=== PATIENT | female | born 1945 | race Caucasian/White ===

== ENCOUNTER → 2019-10-11 | Outpatient (CLI) | payer MEDICARE, OTHER | END | disposition home or self-care (01) | LOC: RAD 07:40 | PROVIDERS: ATTEND Internal Medicine Gastroenterology | DX: K44.9 Diaphragmatic hernia without obstruction or gangrene (principal); Z98.84 Bariatric surgery status | CPT/HCPCS: 74240 ==

== ENCOUNTER → 2019-12-30 | Outpatient (CLI) | payer MEDICARE ==
[~2019-12-30] MED LIST: CETI10CA PO; Collagen; Creon PO; DULO30CA2 PO; FLUT1DIS IH; Fluticasone; GLUC-149 PO; LEVO50TA PO; Lovastatin PO; MONT10TA11 PO; Multivitamin
== END | disposition home or self-care (01) ==
LOC: STAR 12:29
PROVIDERS: ATTEND Thoracic Surgery (Cardiothoracic Vascular Surgery)
DX: Z01.818 Encounter for other preprocedural examination (principal); K44.9 Diaphragmatic hernia without obstruction or gangrene
CPT/HCPCS: 93005; U0001-CS

== ENCOUNTER 2020-01-04 09:53 | Observation (INO) | payer MEDICARE ==
[~2020-01-04] VITALS: Ht 170.2 cm; Wt 90.1 kg
[~2020-01-04 09:53] MED LIST changes: +BUPIVACAINE/PF-EPI 0.5% 1:200K ONE
[2020-01-04] MEDS ORDERED: LACTATED RINGERS 1,000 ML IV SCH (10:08)
[2020-01-04 10:21] VITALS: BP 118/80
[2020-01-04] MEDS ORDERED: CHLORHEXIDINE 15 ML UDC ONE (10:26)
[2020-01-04] MEDS ORDERED: CHLORHEXIDINE 15 ML UDC MM ONE (10:30)
[2020-01-04] MEDS ORDERED: LIDOCAINE-MPF 1%, 2ML INFIL ONE (10:30)
[2020-01-04] MEDS ORDERED: MIDAZOLAM 1 MG/ML, 2ML ONE (11:42)
[2020-01-04] MEDS ORDERED: FENTANYL PF 250 MCG/5ML ONE ×2 (11:43→13:09)
[2020-01-04] MEDS ORDERED: CEFAZOLIN 1,000 MG ONE (11:57)
[2020-01-04] MEDS ORDERED: DEXAMETHASONE 4 MG/ML, 1ML ONE (11:57)
[2020-01-04] MEDS ORDERED: ONDANSETRON 2MG/ML, 2ML ONE (11:57)
[2020-01-04] MEDS ORDERED: EPHEDRINE 50 MG/ML, 1ML ONE (12:18)
[2020-01-04] MEDS ORDERED: ACETAMINOPHEN 325 MG TABLET PO PRN (12:30)
[2020-01-04] MEDS ORDERED: MIDAZOLAM 1 MG/ML, 2ML IV PRN (12:30)
[2020-01-04] MEDS ORDERED: OXYcodone 5 MG/5 ML ORAL.SOL UDC PO PRN (12:30)
[2020-01-04] MEDS ORDERED: ALBUTEROL SULFATE 2.5 MG/3 ML NPPB PRN (12:30)
[2020-01-04] MEDS ORDERED: MEPERIDINE/PF 25MG/0.5ML IVPush PRN (12:30)
[2020-01-04] MEDS ORDERED: DIPHENHYDRAMINE 50 MG/ML, 1ML IVPush PRN (12:30)
[2020-01-04] MEDS ORDERED: hydrALAzine 20 MG/ML, 1ML IV PRN (12:30)
[2020-01-04] MEDS ORDERED: PROMETHAZINE 25 MG/ML, 1ML IVPush PRN (12:30)
[2020-01-04] MEDS ORDERED: PROMETHAZINE 12.5 MG SUPP PR PRN ×2 (12:30→14:00)
[2020-01-04] MEDS ORDERED: ONDANSETRON 2MG/ML, 2ML IVPush PRN ×2 (12:30→14:00)
[2020-01-04] MEDS ORDERED: DIAZEPAM 5 MG/ML, 2ML IVPush PRN (12:30)
[2020-01-04] MEDS ORDERED: EPHEDRINE 50 MG/ML, 1ML IVPush PRN (12:30)
[2020-01-04] MEDS ORDERED: LABETALOL 5MG/ML, 20ML IV PRN (12:30)
[2020-01-04] MEDS ORDERED: SUGAMMADEX 200 MG/2 ML IVPush ONE (13:36)
[2020-01-04] MEDS ORDERED: ROCURONIUM 10MG/ML,5ML ONE (13:42)
[2020-01-04] MEDS ORDERED: PROPOFOL 10 MG/ML, 20ML ONE (13:42)
[2020-01-04] MEDS ORDERED: SUCCINYLCHOLINE 20 MG/ML, 10ML ONE (13:42)
[2020-01-04] MEDS ORDERED: morphine SULFATE 10 MG/ML, 1ML IVPush PRN (14:00)
[2020-01-04] MEDS ORDERED: ENALAPRILAT 1.25 MG/ML, 2ML IV PRN (14:00)
[2020-01-04] MEDS ORDERED: hydrALAzine 20 MG/ML, 1ML IVPush PRN (14:00)
[2020-01-04] MEDS ORDERED: PHENOL THROAT SPRAY BOTTLE MM PRN (14:00)
[2020-01-04] MEDS ORDERED: PROMETHAZINE 25 MG/ML, 1ML IM PRN (14:00)
[2020-01-04] MEDS ORDERED: DIPHENHYDRAMINE 50 MG/ML, 1ML IV PRN (14:00)
[2020-01-04] MEDS ORDERED: MEPERIDINE/PF 25MG/ML,1ML ONE (14:01)
[2020-01-04] MEDS ORDERED: OXYcodone 5 MG/5 ML ORAL.SOL UDC ONE (14:02)
[2020-01-04] MEDS: FENTANYL PF 100 MCG/2ML IV PRN ×2 (14:12→14:23)
[2020-01-04] MEDS: HYDROmorphone 1 MG/ML, 1ML INJ IVPush PRN ×2 (14:13→14:36)
[2020-01-04] MEDS ORDERED: FENTANYL PF 100 MCG/2ML ONE (14:15)
[2020-01-04] MEDS ORDERED: HYDROmorphone 1 MG/ML, 1ML INJ ONE (14:27)
[2020-01-04 15:25] VITALS: BP 120/80
[2020-01-04] MEDS: LACTATED RINGERS 1,000 ML IV SCH ×2 (15:37→23:12)
[2020-01-04 19:02] VITALS: BP 136/67
[2020-01-04] MEDS: FAMOTIDINE 20 MG/2 ML IVPush SCH (20:57)
[2020-01-04] MEDS: TEMPLATE NON-FORMULARY MED. (Fluticasone/Salmeterol** (Advair 100-50 Diskus**) 1 PUFF) INH SCH (21:00)
[2020-01-05] MEDS: HYDROcodone/APAP 7.5-325MG/15ML UDC PO PRN ×4 (00:41→11:46)
[2020-01-05 00:45] VITALS: BP 140/80
[2020-01-05 03:40] VITALS: BP 104/61
[2020-01-05 04:55] LABS: BASOPHILS % (AUTO) 0 % (0-1); EOSINOPHILS # (AUTO) 0.09 x10^3/uL (0-0.4); EOSINOPHILS % (AUTO) 1 % (1-7); LYMPHOCYTES # (AUTO) 1.01 x10^3/uL (1-3.4); LYMPHOCYTES % (AUTO) 8 % (22-44); MD NO; MEAN CORPUSCULAR HEMOGLOBIN 28.9 pg (27.0-34.8); MEAN CORPUSCULAR VOLUME 90.5 fL (80-100); MEAN PLATELET VOLUME 11.1 fL (7.4-10.4); MONOCYTES # (AUTO) 0.84 x10^3/uL (0.2-0.8); MONOCYTES % (AUTO) 7 % (2-9); NEUTROPHILS # (AUTO) 10.31 x10^3/uL (1.8-6.8); NEUTROPHILS % (AUTO) 84 % (42-75); PLATELET COUNT 150 x10^3/uL (130-400); RED BLOOD COUNT 3.96 x10^6/uL (3.82-5.3)
[2020-01-05 05:06] LABS: ANION GAP 5 mmol/L (5-15); CALCIUM 8.2 mg/dL (8.5-10.1); CHLORIDE 108 mmol/L (98-107); CREATININE 0.97 mg/dL (0.55-1.02)
[2020-01-05] MEDS: LACTATED RINGERS 1,000 ML IV SCH (05:41)
[2020-01-05] MEDS ORDERED: LEVOTHYROXINE 50 MCG TABLET PO SCH (06:00)
[2020-01-05 07:18] VITALS: BP 94/62
[2020-01-05] MEDS ORDERED: KETOROLAC 30 MG/1 ML IVPush SCH (08:30)
[2020-01-05] MEDS: TEMPLATE NON-FORMULARY MED. (Fluticasone/Salmeterol** (Advair 100-50 Diskus**) 1 PUFF) INH SCH (09:00)
[2020-01-05] MEDS ORDERED: DULOXETINE 30 MG CAPSULE.DR PO SCH (09:00)
[2020-01-05] MEDS ORDERED: ENOXAPARIN 40 MG/0.4 ML SQ SCH (09:00)
[2020-01-05] MEDS ORDERED: HYDR473S47 PO (09:14)
[2020-01-05] MEDS: FAMOTIDINE 20 MG/2 ML IVPush SCH (09:35)
[2020-01-05 12:50] VITALS: BP 119/75
== END 2020-01-05 13:31 | disposition home or self-care (01) ==
LOC: OUT 09:53 → ORIP 13:53 → 4NE 15:33 → DCLOUNGE 01-05 13:18
PROVIDERS: ADMIT Thoracic Surgery (Cardiothoracic Vascular Surgery); ATTEND Thoracic Surgery (Cardiothoracic Vascular Surgery)
DX: K44.9 Diaphragmatic hernia without obstruction or gangrene (principal); R13.10 Dysphagia, unspecified; R11.10 Vomiting, unspecified; K66.0 Peritoneal adhesions (postprocedural) (postinfection); K21.9 Gastro-esophageal reflux disease without esophagitis; J45.909 Unspecified asthma, uncomplicated; E03.9 Hypothyroidism, unspecified; E66.01 Morbid (severe) obesity due to excess calories; M81.0 Age-related osteoporosis without current pathological fracture; E78.5 Hyperlipidemia, unspecified; Z98.84 Bariatric surgery status; Z79.899 Other long term (current) drug therapy
CPT/HCPCS: 36415; 43281; 49329; 80048; 82040; 85025; 96372; 96374; 96375; 96376; G0378; J0330; J0690; J1100; J1170; J1650; J1885; J2175; J2250; J2405; J2704; J3010; J3490; J7120